=== PATIENT | male | born 1960 | race Caucasian/White ===

== ENCOUNTER → 2023-04-20 12:03 | Outpatient (CLI) | payer BC, SELFPAY ==
--- NOTE | ~2023-04-20 | XR_ITS ---
Left Knee Technique: AP, lateral, and sunrise views were obtained. Clinical History: Pain Findings: No fracture or dislocation is seen. Bipartite patella noted. Osseous alignment is anatomic. Probable prominent osteophyte noted anteriorly at the tibia on the lateral view.. Soft tissues are u nremarkable. No joint effusion is seen. Impression: Probable osteophyte, less likely loose body, noted at the anterior aspect of the proximal tibia on la teral view. Bipartite patella. Reviewed, dictated and finalized at location M. Impression: Probable osteophyte, less likely loose body, noted at the anterior aspect of th e proximal tibia on lateral view. Bipartite patella.
== END ==
PROVIDERS: PCP Family Medicine; Visit Provider Family Medicine
DX: M25.562 Pain in left knee (principal); Q74.1 Congenital malformation of knee
CPT/HCPCS: 73564

== ENCOUNTER 2023-04-28 14:37 | Outpatient (RCR) | payer BC, SELFPAY ==
--- NOTE | 2023-04-28 16:20 | PTOPEVAL1 ---
Assessment and note entered by David Jackson, PT, DPT Evaluation Information Assessment Status Evaluation Diagnosis L knee pain Onset 1 month Subjective Information Pt states his pain is worst first thing in the morning 07/24, he states he has to limb because it hurts so bad. He states he walks his dogs 2x/day about 0.5 miles ea time. He states he also ices 2x /day but states sometimes it does not always help. He states his pain is worse in weight bearing. He reports he sits and sleeps with a pillow under the knee because it hurts to straighten it out. He states about a month ago he helped family moved who lived in a upper level apartment, but the pain did not start for a week after this. Pt is retired. Reported Pain Level Pain Score 2: Self Report Assessment PT Clinical Summary Luther presents to therapy today for his initial evaluation with a diagnosis of L knee pain. Today he demonstrates limitations in his active L knee ROM d/t pain. He reports popping and catching with end ROM, is unable to tolerate single leg stance, and ambulated with an antalgic pattern. It was recommended that pt follow up with an orthopedic doctor prior to continuing therapy d/t significant levels of pain. Plan of Care Interventions Gait Training,Manual Therapy,Neuro Re-education, Patient/Caregiver Educati,Therapeutic Activities, Therapeutic Exercise PT Services Indicated Yes Treatment Frequency and pending follow up with ortho Duration These treatments will address the objective and functional deficits as defined above. The patient will be advanced safely and appropriately in order for the patient to progress towards his/her prior level of function. Additional exercises will be introduced and as well as a comprehensive home exercise program upon discharge, if needed, ?to ensure carryover of functional gains achieved in the clinic. This treatment plan has been reviewed and agreement upon by the patient.
--- NOTE | 2023-07-19 10:17 | PTOPDC ---
Assessment and note entered by David Jackson, PT, DPT Evaluation Information Assessment Status Discharge - Pt Not Present Diagnosis L knee pain Onset 1 month Subjective Information Pt was evaluated on 04/28/23 and therapy was put on hold pending an ortho consult. Per review of consult with Dr. Radford pt received an injection and is doing well. Pt has not contacted clinic and will be discharged at this time. Assessment PT Clinical Summary Luther was evaluated on 05/01/23 and attended 0 appointments. He will now be discharged. If additional therapy is needed at a later date he will need a new order.
== END 2023-07-19 11:09 | disposition home or self-care (01) ==
LOC: ANHGOSHPT 14:37
PROVIDERS: PCP Family Medicine; Visit Provider Family Medicine
DX: M25.562 Pain in left knee (principal)
CPT/HCPCS: 97110; 97161

== ENCOUNTER 2023-05-25 16:28 | Outpatient (CLI) | payer OTHER, SELFPAY ==
--- NOTE | ~2023-05-25 | MR_ITS ---
EXAMINATION: MR knee LT wo con DATE: 05/25/2023 17:50 INDICATION: Left knee pain. TECHNIQUE: Magnetic resonance imaging (MRI) of the left knee was performed without intravenous contra st. Sequences included axial PD-weighted FS FSE, coronal PD-weighted FSE and PD-weighted FS FSE, sagi ttal PD-weighted FSE, and sagittal T2-weighted FS FSE. COMPARISON: Left knee radiograph 607/23 FINDINGS: Medial compartment: Medial meniscus is normal. There is shallow partial-thickness cartilage loss of femoral condyle and t ibial condyle. Marginal osteophytes are noted. There is mild subchondral edema-like marrow signal int ensity in medial tibial condyle. Lateral compartment: Lateral meniscus is normal. There is cartilage surface irregularity of femoral condyle and tibial con dyle. Osteophytes are noted. Patellofemoral compartment: Patellar is bipartite. There is shallow partial-thickness cartilage loss of patellar median ridge. Th ere is shallow partial-thickness cartilage loss of medial trochlea. Osteophytes are noted. Ligaments and tendons: The anterior and posterior cruciate ligaments are normal. There are changes of prior sprains of media l collateral ligament and fibular collateral ligament characterized increased signal intensity proxim ally. There is mild patellar tendinopathy. Fluid: There is a small knee joint effusion. There is trace fluid in a Anderson's cyst. There is mild prepatell ar and superficial infrapatellar bursitis. IMPRESSION: 1. Mild tricompartmental chondrosis. 2. Small knee joint effusion. Reviewed, dictated and finalized at location E.
== END 2023-05-25 16:29 | disposition home or self-care (01) ==
PROVIDERS: PCP Family Medicine; Visit Provider Nurse Practitioner
DX: M25.562 Pain in left knee (principal); M25.462 Effusion, left knee
CPT/HCPCS: 73721

== ENCOUNTER 2023-10-11 00:26 | Day surgery (SDC) | payer OTHER, SELFPAY ==
[2023-09-23 11:37] VITALS: BMI 30.9
--- NOTE | 2023-10-10 09:00 | SUR.PREOP ---
Patient called regarding upcoming procedure. Reviewed preop instructions, appointment times, and procedure prep.
[2023-10-11 06:18] VITALS: BP 152/94; PULSE 75; RESP 16; TEMP 36.7; O2SAT 98
[2023-10-11] MEDS: LACTATED RINGERS 1,000 ML 150 ML IV CONT (06:25)
--- NOTE | 2023-10-11 07:16 | WPDANESEPPF ---
Anes - Initial Pre Proc Eval Procedure: Operation Date: 10/11/23 07:30 Proposed Procedures p Screening Colonoscopy - Hector Spann MD Date/Time: 10/11/23 07:16 Surgeon: Hector Spann MD Pre Op Diagnosis: neoplasm screening Patient Data Age: 62 Gender: M Height: 1.75 m Weight: 92.4 kg Last Vital Signs Temp 98.1 F 10/11/23 06:18 Pulse 75 10/11/23 06:18 Resp 16 10/11/23 06:18 BP 152/94 H 10/11/23 06:18 Pulse Ox 98 10/11/23 06:18 O2 Del Method Room Air 10/11/23 06:18 Allergies Allergy/AdvReac Type Severity Reaction Status Date / Time No Known Allergies Allergy Verified 10/11/23 06:17 Home Medications Medication Instructions Recorded Confirmed Type cholecalciferol (vitamin D3) 50 50 mcg PO DAILY #90 tabs 10/10/23 10/11/23 Rx mcg (2,000 unit) tablet Patient hx anesthesia problems: none Family hx anesthesia problems: none Results Review: All pre-operative results and documents have been reviewed as part of the pre-operative evaluation. [facility] Past Medical History Medical History Allergies Dyslipidemia Vitamin D deficiency Surgical History Surgical History History of hand surgery (~1979) left hand - age 19 S/P trigger finger release (~11/2021) right middle trigger finger release Family History Family History Other Family history of coronary artery disease Social History Social History Smoking status: Never smoker Second hand tobacco smoke exposure: No Alcohol intake: current Drinks per week: 3 Alcohol use details: beer Substance use: never Substance use type: does not use Lack of Transportation: No Lack of Food: Never True Current Housing: I Have Housing Concerned About Future Housing: No Difficulty Paying Gas/Electric Bills: No Difficulty Paying for Meds: No Currently Unemployed: No Education: Bachelor's Degree Difficulty w/ Childcare or Family Care: No Living arrangements: with family Additional living arrangements comments: Occupation/Education: retired Additional occupation/education comments: Gender identity (if verbalized by the patient): Male Sexual Orientation (if Verbalized by the Patient): Straight or Heterosexual Spiritual care concerns: No Anes - Eval Final PreProcedure Day of Procedure 10/11/23 07:16 Patient weight: obese Heart: regular rate and rhythm Lungs: clear to auscultation Airway: Mallampati scale class II Neurological: alert and oriented Last oral intake: >/= 8 hours ASA classification: II Emergent: no Anesthetic plan: proceed Anesthesia type and monitoring: general GIVS and standard monitoring Results Review: All pre-operative results and documents have been reviewed as part of the pre-operative evaluation. Informed Consent: The patient's anesthetic plan and its attendant risks and benefits were discussed with the patient/family/POA. Questions were solicited and answers provided to the satisfaction of the patient/family/POA.
--- NOTE | 2023-10-11 07:27 | PM.HPGS ---
History of Present Illness History of Present Illness Consent: Risks, benefits, and alternatives have been discussed and questions answered. Patient agrees to proceed with procedure. Chief complaint: neoplasm screening Narrative: Luther Medina is a 62 year old male Presents for screening colonoscopy. Patient's current weight appetite and bowel movements are normal. Patient denies abdominal pain. He has had no bleeding. Previous colonoscopy 10 years ago was unremarkable. Review of Systems Review of Systems: Review of systems is noncontributory. [facility] Past Medical History Medical History Allergies Dyslipidemia Vitamin D deficiency Surgical History Surgical History History of hand surgery (~1979) left hand - age 19 S/P trigger finger release (~11/2021) right middle trigger finger release Family History Family History Other Family history of coronary artery disease Social History Social History Smoking status: Never smoker Second hand tobacco smoke exposure: No Alcohol intake: current Drinks per week: 3 Alcohol use details: beer Substance use: never Substance use type: does not use Lack of Transportation: No Lack of Food: Never True Current Housing: I Have Housing Concerned About Future Housing: No Difficulty Paying Gas/Electric Bills: No Difficulty Paying for Meds: No Currently Unemployed: No Education: Bachelor's Degree Difficulty w/ Childcare or Family Care: No Living arrangements: with family Additional living arrangements comments: Occupation/Education: retired Additional occupation/education comments: Gender identity (if verbalized by the patient): Male Sexual Orientation (if Verbalized by the Patient): Straight or Heterosexual Spiritual care concerns: No Meds Home Medications and Allergies Home Medications Medication Instructions Recorded Confirmed Type cholecalciferol (vitamin D3) 50 50 mcg PO DAILY #90 tabs 10/10/23 10/11/23 Rx mcg (2,000 unit) tablet Allergies Allergy/AdvReac Type Severity Reaction Status Date / Time No Known Allergies Allergy Verified 10/11/23 06:17 Vital Signs Vital Signs - 24 hr 10/11/23 06:18 Temperature 98.1 F Pulse Rate 75 Respiratory Rate 16 Blood Pressure 152/94 H Pulse Oximetry 98 Oxygen Delivery Room Air Exam Narrative: Physical exam reveals patient to be alert. Vital signs stable. HEENT exam is unremarkable. Patient is anicteric. Lungs are clear to auscultation and percussion. Heart is without murmur or extra sounds. Abdominal exam bowel sounds are present soft nontender with no organomegaly. Digital external rectal exam is normal. Assessment and Plan Assessment and plan (1) Encounter for screening colonoscopy: Code(s): Z12.11 - Encounter for screening for malignant neoplasm of colon Status: Acute Assessment and Plan: Patient presents today for screening colonoscopy. He appears to be at average risk for colon polyps. Further recommendations may be given after endoscopy.
[2023-10-11 07:50] VITALS: BP 126/79; PULSE 80; RESP 20; O2SAT 95
[2023-10-11 08:00] VITALS: BP 131/75; PULSE 73; RESP 20; O2SAT 96
[2023-10-11 08:10] VITALS: BP 138/97; PULSE 76; RESP 20; O2SAT 95
== END 2023-10-11 08:14 | disposition home or self-care (01) ==
PROVIDERS: PCP Family Medicine; Visit Provider Internal Medicine Gastroenterology
PROC: 0DJD8ZZ Inspection of Lower Intestinal Tract, Via Natural or Artificial Opening Endoscopic (ICD-10-PCS; CPT 45378; principal; 2023-10-11 07:30)
DX: Z12.11 Encounter for screening for malignant neoplasm of colon (principal); K63.5 Polyp of colon; K64.8 Other hemorrhoids; F10.90 Alcohol use, unspecified, uncomplicated; E55.9 Vitamin D deficiency, unspecified; Z79.899 Other long term (current) drug therapy
CPT/HCPCS: 45385; 88305; J2704; J7120

== ENCOUNTER 2024-04-17 14:31 | Outpatient (CLI) | payer OTHER, SELFPAY ==
--- NOTE | ~2024-04-17 | XR_ITS ---
XR ankle LT min 3V Ordering provider: Jessica Franco DO History: . M25.572 - Pain in left ankle and joints of left foot . Comparison: None. FINDINGS: BONES: No definite acute fracture or dislocation. Focal area of loss of continuity of the cortex in t he lateral aspect of the distal fibula is seen which may indicate healing fracture in the area. Follo w-up advised. JOINT SPACES: The ankle mortise is normal. SOFT TISSUES: Calcaneus spur. Minimal soft tissue swelling over the distal fibula. IMPRESSION: No definite acute osseous abnormality left ankle. Focal area of loss of continuity of the cortex in t he lateral aspect of the distal fibula is seen which may indicate healing fracture in the area. Follo w-up advised. Reviewed, dictated and finalized at location A. IMPRESSION: No definite acute osseous abnormality left ankle. Focal area of loss of continu ity of the cortex in the lateral aspect of the distal fibula is seen which may indicate healing fracture in the area. Follow-up advised.
== END 2024-04-17 14:32 ==
PROVIDERS: PCP Family Medicine; Visit Provider Family Medicine
DX: M25.572 Pain in left ankle and joints of left foot (principal)
CPT/HCPCS: 73610

== ENCOUNTER 2024-04-30 09:54 | Outpatient (CLI) | payer OTHER, SELFPAY ==
--- NOTE | ~2024-04-30 | XR_ITS ---
XR ankle LT min 3V Ordering provider: Syed Jackson MD History: . M25.572 - Pain in left ankle and joints of left foot . Comparison: None. FINDINGS: BONES: The areas seen in the lateral malleolus is unchanged. Cortical bone lesion is not excluded. CT evaluation advised. JOINT SPACES: The ankle mortise is normal. SOFT TISSUES: Normal. Calcaneal spur. IMPRESSION: No change from previous examination. Reviewed, dictated and finalized at location A.
== END 2024-04-30 09:55 | disposition home or self-care (01) ==
PROVIDERS: PCP Family Medicine; Visit Provider Orthopaedic Surgery
DX: M25.572 Pain in left ankle and joints of left foot (principal); M77.32 Calcaneal spur, left foot
CPT/HCPCS: 73610

== ENCOUNTER 2024-05-10 09:26 | Outpatient (CLI) | payer OTHER, SELFPAY ==
--- NOTE | ~2024-05-10 | MR_ITS ---
EXAMINATION: MR ankle LT wo con DATE: 05/10/2024 10:01 INDICATION: Left ankle pain and swelling TECHNIQUE: Magnetic resonance imaging (MRI) of the left ankle was performed without intravenous contr ast. Sequences included sagittal, coronal, and axial proton-density weighted fast spin echo without a nd with fat saturation. COMPARISON: None. FINDINGS: Medial ankle ligaments: The superficial deltoid ligament as well as the spring ligament are normal. Small osteophytes at the medial malleolar insertion of the deep deltoid ligament which demonstrates loss of the normally more sharply defined striated pattern consistent with scarring related to chronic sprain. Lateral ankle ligaments: The anterior and posterior inferior tibiofibular ligaments are normal. There is thickening and mild i ncreased signal of the anterior talofibular, calcaneofibular and posterior talofibular ligaments cons istent with scarring related to chronic sprain. There is a small osteophyte at the fibular origin ant erior talofibular ligament also likely sequela of chronic sprain. Tendons: Achilles tendon is normal. There is mild peroneal tenosynovitis. Mild tendinopathy and likely longitu dinal split tear of the peroneus longus tendon at the level of the retromalleolar groove. There is al so moderate tendinopathy and longitudinal split tearing of the peroneus brevis tendon with superimpos ed partial-thickness tear involving a small portion of the lateral side of the tendon distal level of the tip the lateral malleolus. The tibialis anterior and extensor hallucis longus and extensor digi torum longus tendons are normal. Mild tenosynovitis with mild increased fluid along the otherwise nor mal tibialis posterior tendon. The flexor digitorum longus and flexor hallucis longus tendons are nor mal. Plantar fascia: The plantar aponeurosis is normal. Bones/other: Bone alignment is normal. No fracture or pathologic marrow replacing process. The small cortical irre gularity identified at the anterolateral margin of the lateral malleolus on prior radiographs corresp onds to a small osteophyte at the fibular origin of the superior extensor peroneal retinaculum which could be either enthesopathic or sequela of old trauma. Joint spaces are normal. Nonspecific edema at Kager fat pad. The Lisfranc ligament complex is normal. Fluid: Small amount of fluid and mild synovitis at the posterior recess of the tibiotalar and subtalar joint s. IMPRESSION: 1. Small osteophyte at the fibular insertion of the superior extensor retinaculum which could be eith er enthesopathic or sequela of old trauma and which accounts for the cortical irregularity at this lo cation identified on the prior radiographs. No fracture or other acute osseous abnormality. 2. Peroneal tenosynovitis with mild tendinopathy and longitudinal split tears of both the peroneus lo ngus and brevis tendons with likely small partial-thickness tear of the peroneus brevis tendon. 3. Mild scarring consistent with chronic medial and lateral ankle sprain involving the deep deltoid l igament and the anterior talofibular, posterior talofibular and calcaneofibular ligaments. Reviewed, dictated and finalized at location B. IMPRESSION: 1. Small osteophyte at the fibular insertion of the superior extensor retinacul um which could be either enthesopathic or sequela of old trauma and which accou nts for the cortical irregularity at this location identified on the prior radi ographs. No fracture or other acute osseous abnormality. 2. Peroneal tenosynovitis with mild tendinopathy and longitudinal split tears o f both the peroneus longus and brevis tendons with likely small partial-thickne ss tear of the peroneus brevis tendon. 3. Mild scarring consistent with chronic medial and lateral an
== END 2024-05-10 09:27 ==
LOC: MICIMG 09:27
PROVIDERS: PCP Orthopaedic Surgery; Visit Provider Orthopaedic Surgery
DX: S82.832A Other fracture of upper and lower end of left fibula, initial encounter for closed fracture (principal); M89.9 Disorder of bone, unspecified; M65.872 Other synovitis and tenosynovitis, left ankle and foot; S96.812A Strain of other specified muscles and tendons at ankle and foot level, left foot, initial encounter
CPT/HCPCS: 73721

== ENCOUNTER 2025-05-04 07:41 | Emergency (ER) | payer OTHER, SELFPAY ==
--- NOTE | ~2025-05-04 | CT_ITS ---
EXAMINATION: CT abdomen pelvis w con DATE: 05/04/2025 09:56 INDICATION: Right lower quadrant abdominal pain and right flank pain with CVA tenderness. TECHNIQUE: Computed tomography (CT) of the abdomen and pelvis was performed with 100 mL Omnipaque-350 intravenous contrast. Automated exposure control and iterative reconstruction technique were employe d. The dose-length product was 522.26 mGy-cm. COMPARISON: None FINDINGS: Mild dependent atelectasis in the bilateral lower lobes. Heart size is normal. Atherosclerotic english ry artery calcification. No pericardial or pleural effusion. There are a few subcentimeter low-attenu ation cysts in the right hepatic lobe. Gallbladder, spleen, pancreas and bilateral adrenal glands are normal. 1 cm cyst in the region of focal cortical scarring at the lower pole the left kidney. Obstru cting 4 mm stone at the junction of the mid to distal ureter where across anterior to the right exter nal iliac artery with mild right hydronephrosis and mildly delayed right nephrogram. 7 mm right renal cyst. Bowels including the appendix are normal. Bladder is normal. Small fat-containing left inguina l hernia. No free intraperitoneal gas or fluid. No pathologically enlarged abdominal or pelvic lympha denopathy. Moderate thoracic and lumbar spondylosis. IMPRESSION: 1. Obstructing 4 mm right ureteral stone with mild right hydronephrosis. Reviewed, dictated and finalized at location A.
[2025-05-04 07:44] VITALS: BP 169/94; PULSE 68; RESP 16; TEMP 36.8; O2SAT 100
[2025-05-04 08:23] LABS: Basophils Percent Auto 0.4 % (0.2-1.2); Eosinophils Percent Auto 0.4 % (0-4.4); Hematocrit 46.2 % (42.0-52.0); Hemoglobin 16.1 g/dL (14.0-18.0); Immature Granulocyte Absolute 0.03 K/mm3 (0.00-0.031); Immature Granulocyte Percent A 0.4 % (0-0.5); Lymphocytes Absolute Auto 1.99 K/mm3 (0.9-3.2); Lymphocytes Percent Auto 26.6 % (18.3-44.2); Mean Corpuscular HGB Conc 34.8 g/dl (32-36); Mean Corpuscular Volume 91.8 fl (80-100); Mean Platelet Volume 9.6 fl (7.4-10.4); Monocytes Absolute Auto 0.5 K/mm3 (0.1-0.6); Monocytes Percent Auto 7.1 % (2.6-8.5); Neutrophils Absolute Auto 4.9 K/mm3 (1.3-6.7); Neutrophils Percent Auto 65.1 % (45.5-73.1); Platelet Count Result 215 k/mm3 (150-375); Red Blood Count 5.03 M/mm3 (4.6-6.20); Red Cell Distribution Width 12.1 % (11.5-14.5); White Blood Count 7.5 K/mm3 (4.5-10.0)
[2025-05-04 08:47] LABS: Alanine Aminotransferase 40 U/L (6-50); Albumin Level 4.8 g/dL (3.5-5.1); Alkaline Phosphatase 81 U/L (38-126); Anion Gap 12 mmol/L (4-12); Aspartate Amino Transferase 36 U/L (17-59); Bilirubin,Total 0.7 mg/dL (0.2-1.3); Blood Urea Nitrogen 12 mg/dL (9-20); Calcium 9.8 mg/dL (8.4-10.2); Carbon Dioxide 22 mmol/L (22-30); Chloride 102 mmol/L (98-107); Estimated CRCL calculation 91 ml/min; Estimated Glomerular Filt Rate > 60; Glucose 149 mg/dL (65-110); Lipase 54 U/L (23-300); Potassium 3.8 mmol/L (3.4-5.0); Sodium 136 mmol/L (137-145); Total Protein 7.6 g/dL (6.3-8.2)
--- NOTE | 2025-05-04 08:50 | PC.NURSE ---
Per crane service technician, patient refusing to provide urine specimen until he receives pain medication.
--- NOTE | 2025-05-04 09:14 | ED_ITS ---
HPI - Back Pain/Injury General Chief Complaint: Back Pain/Injury Stated Complaint: right side lower back pain Time Seen by Provider: 05/04/25 08:41 Source: patient Mode of arrival: ambulatory Limitations: no limitations History of Present Illness HPI Narrative: Patient presents with what started as right lower quadrant abdominal pain but then became right-sided flank/back pain. He describes it as a stabbing sensation and that it is especially painful with movement. Symptoms started at 8:00 p.m.. Last oral intake some bread this morning. He denies any scrotal swelling or pain penile discharge. Does have a history of kidney stone. No previous abdominal surgeries. He denies any dysuria, urgency, frequency or hematuria. Has had decreased p.o. intake. He had nausea earlier but no vomiting. He on anticoagulation. Denies any trauma. Last bowel movement was last night he denies any diarrhea, constipation or bloody stool. No incontinence of bowel or bladder. No fevers or chills although was having subjective hot flashes. He denies any IV drug use. Not chronically on steroids. No history of cancer. Related Data Allergies Allergy/AdvReac Type Severity Reaction Status Date / Time No Known Allergies Allergy Verified 05/04/25 07:47 [facility] Past Medical History Medical History Kidney stone Fracture of distal end of left fibula Vitamin D deficiency Environmental allergies Dyslipidemia Surgical History Surgical History S/P trigger finger release (~11/2021) right middle trigger finger release History of hand surgery (~1979) left hand - age 19 Family History Family History Other Family history of coronary artery disease Social History Social History Social History: caffeine use Smoking status: Current every day smoker Smokeless tobacco user: chewing tobacco Second hand tobacco smoke exposure: No Alcohol intake: current Drinks per week: 12 Alcohol use details: beer Substance use: never Substance use type: does not use Lack of Transportation: No Lack of Food: Never True Current Housing: I Have Housing Concerned About Future Housing: No Difficulty Paying Gas/Electric Bills: No Difficulty Paying for Meds: No Currently Unemployed: No Education: Bachelor's Degree Difficulty w/ Childcare or Family Care: No Living arrangements: with family Additional living arrangements comments: Occupation/Education: retired Additional occupation/education comments: ; 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 HEAD: Normocephalic, atraumatic. EYES: Non injected, non icteric ENT: Nares clear, no rhinorrhea or epistaxis. Gross auditory acuity intact. NECK: Supple. No meningismus. CHEST: Speaking in full sentences. No respiratory distress. HEART: Regular rate and rhythm. . ABDOMEN: Soft, nondistended. No rigidity or guarding. Not peritoneal. /BACK: No CVA tenderness bilaterally EXTREMITIES: Normal range of motion. No lower extremity edema. SKIN: Warm, dry, no rash. NEURO: No focal deficits. Alert and oriented. Answering questions. Following commands. Normal speech without aphasia or dysarthria. PSYCH: Normal mood and affect. Course Vital Signs Vital signs: Vital Signs Temperature 98.2 F 05/04/25 07:44 Pulse Rate 68 05/04/25 07:44 Respiratory Rate 16 05/04/25 07:44 Blood Pressure 169/94 H 05/04/25 07:44 Pulse Oximetry 100 05/04/25 07:44 Temperature 98.2 F 05/04/25 07:44 Pulse Rate 75 05/04/25 11:11 Respiratory Rate 16 05/04/25 11:11 Blood Pressure 159/89 H 05/04/25 11:11 Pulse Oximetry 96 05/04/25 11:11 MDM - Back Pain/Injury MDM Narrative Medical decision making narrative: Patient presents with right lower quadrant abdominal pain that then became right-sided back/flank pain. In the emergency department he is afebrile with vital signs notable for hypertension. Will proceed with CT imaging. Analgesia and antiemetic medication order. Patient has mild hyperglycemia without anion gap acidosis. Sodium corrects to normal (137), ie pseudohyponatremia in the setting of the hyperglycemia. Patient tells the nurse that he cannot produce urine without receiving some fluids. Will give 1 L IV fluids for this also renal protection given receiving contrast. Urine with RBCs but otherwise does not appear infected. Patient reassessed at 10:45 a.m.. He states that the initial dose of pain medicine did not really work but that he has been able to find a more comfortable position. He is informed of his diagnosis. Will give another dose of analgesic medication as well as expulsion therapy to include tamsulosin and ketorolac. Upon reassessment, patient appears more comfortable. He states he is continuing to have some pain. We discussed the uncertainty the time course of passage of a kidney stone. We discussed conservative outpatient expulsion therapy but also with a low threshold to return to the emergency department if he failed this and he was given strict emergency department signs and symptoms. He verifies understanding and is in agreement with this plan. Advised to strain urine and follow-up with urology. Contact referral information given. Differential Diagnosis Differential diagnosis: Likely other (Appendicitis, renal/ureteral calculi; diverticulitis; constipation; musculoskeletal/lumbar sprain/strain; epiploic appendagitis; ) Lab Data Attestation: I reviewed the patient's lab results. Lab results narrative: CBC unremarkable 05/04/25 08:16 05/04/25 08:16 Labs: Lab Results 05/04/25 05/04/25 Range/Units 08:16 10:12 WBC 7.5 (4.5-10.0) K/mm3 RBC 5.03 (4.6-6.20) M/mm3 Hgb 16.1 (14.0-18.0) g/dL Hct 46.2 (42.0-52.0) % MCV 91.8 (80-100) fl MCH 32.0 (26-34) pg MCHC 34.8 (32-36) g/dl RDW 12.1 (11.5-14.5) % Plt Count 215 (150-375) k/mm3 MPV 9.6 (7.4-10.4) fl Immature Gran % (Auto) 0.4 (0-0.5) % Neut % (Auto) 65.1 (45.5-73.1) % Lymph % (Auto) 26.6 (18.3-44.2) % Prentiss % (Auto) 7.1 (2.6-8.5) % Eos % (Auto) 0.4 (0-4.4) % Baso % (Auto) 0.4 (0.2-1.2) % Lymph # (Auto) 1.99 (0.9-3.2) K/mm3 Prentiss # (Auto) 0.5 (0.1-0.6) K/mm3 Eos # (Auto) 0.0 (0-0.3) K/mm3 Baso # (Auto) 0.0 (0.0-0.1) K/mm3 Abs Immat Gran (auto) 0.03 (0.00-0.031) K/mm3 Absolute Neuts (auto) 4.9 (1.3-6.7) K/mm3 Absolute Nucleated RBC 0.000 (0.0-0.012) K/mm3 Nucleated RBC % 0.0 (0.0-0.2) % Sodium 136 L (137-145) mmol/L Potassium 3.8 (3.4-5.0) mmol/L Chloride 102 (98-107) mmol/L Carbon Dioxide 22 (22-30) mmol/L Anion Gap 12 (4-12) mmol/L BUN 12 (9-20) mg/dL Creatinine 0.83 (0.7-1.3) mg/dL Estim Creat Clear Calc 91 ml/min Estimated GFR > 60 (59 - ) Glucose 149 H (65-110) mg/dL Calcium 9.8 (8.4-10.2) mg/dL Total Bilirubin 0.7 (0.2-1.3) mg/dL AST 36 (17-59) U/L ALT 40 (6-50) U/L Alkaline Phosphatase 81 (38-126) U/L Total Protein 7.6 (6.3-8.2) g/dL Albumin 4.8 (3.5-5.1) g/dL Lipase 54 (23-300) U/L Urine Color Ragland H (Yellow) Urine Appearance Cloudy H (Clear) Urine pH 5.5 (5.0-9.0) Ur Specific [place] > 1.045 H (1.001-1.035) Urine Protein 1+ H (Negative) mg/dL Urine Glucose (UA) Negative (Negative) mg/dL Urine Ketones Negative (Negative) mg/dL Ur Blood (Man) 3+ H (Negative) Urine Nitrate Negative (Negative) Urine Bilirubin Negative (Negative) Urine Urobilinogen 1.0 (<2.0) mg/dL Leukocyte Esterase Rfl Trace H (Negative) GIULIANA/UL Urine RBC >100 H (0-2) /hpf Urine WBC 0-5 (0-3) /hpf Ur Squamous Epith Cells None seen (Few) /hpf Urine Bacteria None seen /hpf Urine Casts 0-2 Imaging Data Radiologist's impression: Impressions Abdomen/Pelvis CT 05/04/25 09:57 IMPRESSION: 1. Obstructing 4 mm right ureteral stone with mild right hydronephrosis. Discharge Plan Discharge Clinical Impression: Hyperglycemia, Pseudohyponatremia, Right ureteral stone, Hydronephrosis Patient Disposition: Home Condition: Stable Instructions: Antibiotic Form, How to Strain Your Urine (ED), Ureteral Stones (ED) Additional Instructions: As we discussed, you have a stone in your ureter. Use the combination of medications prescribed as expulsion therapy. You can strain your urine and follow-up with the urologist listed below. Return to the emergency department with any new, worsening, or unmanaged symptoms such as intractable nausea/vomiting, intractable pain, fever greater than 100.4? F, etc. Patient Language: Malay Prescriptions: New ketorolac 10 mg tablet 10 mg PO Q8H PRN (Reason: pain) Qty: 14 0RF Rx Instructions: maximum total duration of 5 days from all oral, intranasal, or parenteral formulations; received first dose ED tamsulosin [Flomax] 0.4 mg capsule 0.4 mg PO HS Qty: 14 0RF Rx Instructions: Received 1st dose in emergency department 05/04/2025; start 05/05 ondansetron 4 mg tablet,disintegrating 4 mg PO Q8H PRN (Reason: nausea and vomiting) Qty: 7 0RF Follow-up/Referrals: Britney Cunningham MD [Primary Care Provider] - Nicolás Roca MD [Physician] - Time of Disposition: 11:52
[2025-05-04] MEDS: ONDANSETRON INJ 4 MG/2 ML VIAL IV PUSH (09:40)
[2025-05-04] MEDS: MORPHINE SULFATE (*CRX) 4 MG/ML INJ IV PUSH (09:40)
--- NOTE | 2025-05-04 09:45 | PC.NURSE ---
Pt. states he cannot provide urine sample at this time. Dr. Andrew notified.
[2025-05-04 09:46] VITALS: BP 171/101; PULSE 71; RESP 18; O2SAT 95
[2025-05-04] MEDS: SODIUM CHLORIDE 0.9% IV 1,000 ML 999 ML IV CONT (10:14)
[2025-05-04 10:27] LABS: Bacteria Urine None Seen /hpf; Non Pathogenic Casts 0-2; RBC Urine >100 /hpf (0-2); Squamous Epithelial Cell Urine None Seen /hpf (Few); WBC Urine 0-5 /hpf (0-3)
[2025-05-04 10:28] LABS: Add Urine Microscopic? YES; Appearance Urine Cloudy (Clear); Bilirubin Urine Negative (Negative); Blood Urine 3+ (Negative); Color Urine Orange (Yellow); Glucose Urine UA Negative (Negative); Ketones Urine Negative (Negative); Leukocyte Esterase Ur Trace LEU/UL (Negative); Nitrate Urine Negative (Negative); Protein Urine 1+ mg/dL (Negative); Specific Grav Ur > 1.045 (1.001-1.035); pH Urine 5.5 (5.0-9.0)
[2025-05-04 11:11] VITALS: BP 159/89; PULSE 75; RESP 16; O2SAT 96
[2025-05-04] MEDS: KETOROLAC 15 MG/ML VIAL (*BKC) IV PUSH (11:11)
[2025-05-04] MEDS: HYDROmorphone HCL INJ (*CRX) 2 MG/ML VIAL 0.5 MG IV PUSH (11:12)
[2025-05-04] MEDS: TAMSULOSIN HCL 0.4 MG CAPSULE PO (11:12)
== END 2025-05-04 12:53 | disposition home or self-care (01) ==
PROVIDERS: Emergency Provider Student in an Organized Health Care Education/Training Program; PCP Family Medicine
DX: N13.2 Hydronephrosis with renal and ureteral calculous obstruction (principal); R73.9 Hyperglycemia, unspecified; E55.9 Vitamin D deficiency, unspecified; E78.5 Hyperlipidemia, unspecified; F17.220 Nicotine dependence, chewing tobacco, uncomplicated; Z87.442 Personal history of urinary calculi
CPT/HCPCS: 36415; 74177; 80053; 81001; 83690; 85025; 96361; 96374; 96375; 99284; A9270; J1171; J1885; J2270; J2405; J7030; Q9967

== ENCOUNTER 2025-08-12 11:15 | Outpatient (CLI) | payer OTHER, SELFPAY ==
--- NOTE | ~2025-08-12 | XR_ITS ---
Abdominal radiograph(s) INDICATION: Ureteral stone COMPARISON: CT abdomen pelvis 05/04/2025 TECHNIQUE: 2 view supine AP abdomen FINDINGS: No nephroureteral calculi identified Scattered colonic stool. Small bowel loops not well seen. No acute bony abnormality. IMPRESSION: 1. No nephroureteral calculi identified. Reviewed, dictated and finalized at location .
== END 2025-08-12 11:16 | disposition home or self-care (01) ==
LOC: GOSHIMG 11:15
PROVIDERS: PCP Family Medicine; Visit Provider Family Medicine
DX: N20.2 Calculus of kidney with calculus of ureter (principal)
CPT/HCPCS: 74018